=== PATIENT | female | born 1975 | race American Indian/Alaskan Native ===

== ENCOUNTER 2018-04-28 09:30 | Outpatient (CLI) | payer OTHER ==
--- NOTE | 2018-04-28 15:23 | Ultrasound Report ---
ULTRASOUND PELVIC COMPLETE ULTRASOUND TRANSVAGINAL HISTORY: Uterine fibroids, dysfunctional uterine bleeding. COMPARISON: No relevant comparison at this facility. TECHNIQUE: Transabdominal and transvaginal ultrasound with color doppler interrogation. FINDINGS: Uterus: The uterus is mildly enlarged measuring 9.6 x 5.9 x 6.8 cm. At least 4 uterine masses are identified consistent with fibroids. A 2.8 cm submucosal fibroid is identified in the posterior wall. A 2.9 cm intramural fibroid is identified in the posterior wall. A 5.3 cm exophytic fibroid is identified from the posterior fundus. A 3.2 cm exophytic fibroid is identified from the anterior fundus. Endometrium: The endometrium is displaced anteriorly by the submucosal fibroid but measures normal thickness of approximately 5 mm. Right ovary: 2.9 x 2.0 x 2.1 cm. No focal abnormality. Left ovary: 3.1 x 2.3 x 3.3 cm. No focal abnormality. Multiple images demonstrate a slightly complex fluid collection in the left adnexal region measuring up to 7.2 x 7.7 x 4.5 cm. The etiology of this is unclear. This does not appear to be within the fallopian tubule. IMPRESSION: Uterine fibroid disease as described. Apparent complex fluid collection in the left adnexa of uncertain significance. Consider further evaluation with CT with IV contrast.
--- NOTE | 2018-04-29 08:22 | Mammography Report ---
BILATERAL DIGITAL SCREENING MAMMOGRAM with CAD: 04/28/18 09:30:00 CLINICAL: Routine screening. COMPARISON:None. FINDINGS: The breasts are almost entirely fatty. No mass, architectural distortion or suspicious calcifications. IMPRESSION: No mammographic evidence of malignancy. BI-RADS CATEGORY: 1 - - Negative RECOMMENDATION: Routine mammographic screening in one year. COMMENT: Patient follow-up letters are generated by our [employer] application.
== END 2018-04-28 09:31 | disposition home or self-care (01) ==
LOC: MAMMO 09:30
PROVIDERS: ATTEND Obstetrics & Gynecology
DX: Z12.31 Encounter for screening mammogram for malignant neoplasm of breast (principal); D25.0 Submucous leiomyoma of uterus; E66.9 Obesity, unspecified
CPT/HCPCS: 76830; 76856; 77067